=== PATIENT | female | born 1985 | race Caucasian/White ===

== ENCOUNTER 2019-03-10 21:05 | Inpatient (IN) | payer BC, OTHER ==
[2019-03-10] MEDS ORDERED: Glycerin ADULT SUPP PR PRN (22:05)
[2019-03-10] MEDS ORDERED: OXYTOCIN* 10 UNITS/ML 1 ML VIAL IM ONE (22:05)
[2019-03-10] MEDS ORDERED: Witch Hazel PAD* JAR TOPICAL PRN (22:05)
[2019-03-10] MEDS ORDERED: Acetaminophen TAB* 325 MG PO PRN (22:05)
[2019-03-10] MEDS ORDERED: Dibucaine 1% 28.35 GM TUBE PR PRN (22:05)
--- NOTE | 2019-03-10 22:13 | HP ---
General Information - Reason for Visit IUP at 40-06/22 in labor - General Information Maternal Age: 30 Grav: 1 Para: 0 SAB: 0 IEA: 0 Estimated Due Date: 11/17/15 Determined By: LMP Gestational Age in Weeks/Days: 40-7 Maternal Blood Type and Rh: A Positive - Results this Serology/RPR Result: Non-Reactive Rubella Result: Immune HBsAg Result: Negative HIV Result: Negative GBS Culture Result: Negative Past Medical History Delivery History: Hx Uncomplicated Vaginal Delivery Delivery History Comment: 11/2015 6lb 3oz female. 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 Followed by PCP Pertinent Past Surgical History: See Records Past Surgical History Comment: 2010 [facility] bx 2006 [place] tooth extraction Pertinent Family History: See Records Family History Comment: Father: Hyperlipidemia, Cancer Mother: Osteoporosis, Thyroid Dz PGM: , COPD, Lung cancer PGF: , hospital acquired ifx MGM: , appendicitis MGF: , unknown Maternal Aunt: Brain cancer - Antepartal Records Antepartal Records: Reviewed, Uncomplicated Review of Systems Constitutional: Uncomfortable - with [facility] CV Complaint: No Respiratory: Shortness of Breath: No Gastrointestinal: No Nausea/Vomiting, Normal Bowel Movement Genitourinary: Leaking Fluid - s/p SROM at 2020, No Dysuria, No Bleeding Musculoskeletal: Contractions, Pressure Neurological: No Headache, No Visual Changes Movement: Normal Exam Allergies/Adverse Reactions: Allergies No Known Allergies Allergy (Verified 04/27/16 10:23) - Measurements Height: 5 ft 2 in Weight: 153 lb Body Mass Index (BMI): 28.0 Pre- Weight: 120 lb - Exam Breast: Breast Exam Deferred CVA: No CVA Tenderness Extremities: No Edema Heart: Normal Rhythm/Heart Sounds HEENT: No Significant Findings Lungs: Clear Bilaterally Rectal: Rectal Exam Deferred Reflexes: DTR 2+ Thyroid: No Thyromegaly - Abdominal Exam Abdomen Exam: Non-Tender, Fundal Height Consistent with Dates - Ultrasound/Biophysical Profile Ultrasound Status: Not Done Targeted Exam Findings Estimated Weight: 6-6.5lbs Cervical Exam: 9cm Effacement: 100% Station: +1 Presenting Part: Vertex Membrane Status: Leaking Amniotic Fluid Evaluation: Clear Sterile Speculum Exam: None Bleeding/Discharge: None EFM Findings - External Monitor Findings Baseline Heart Rate: 130 External Monitor Findings: No Pattern of Variable or Late Decelerations, Baseline Stable External Monitor Findings Comment: By intermittent doptones FHT stable Contractions: Regular, Strong Contraction Frequency: q 2-3 min Assessment/Plan - Assessment IUP at 40-1/7 in active labor No evidence of metabolic acidemia Delivery imminent - Plan Plan: Admit - Anticipate Vaginal Delivery - Date/Time of Admission Date of Admission: 03/10/19 Time of Admission: 21:11
--- NOTE | 2019-03-10 22:23 | PROCNOTE ---
[facility] OB: Delivery Note - Delivery A Date of : 03/10/19 Time of : 21:36 [place] Sex: Female - "Fidelina" Score 1 Minute: 8 Score 5 Minutes: 9 Gestational Age in Weeks and Days at Delivery: 40 Weeks and 1 Days Delivery Method: Spontaneous Vaginal Labor: Spontaneous Did Patient attempt ?: N/A, No Previous Amniotic Fluid: Clear Estimated Blood Loss: 300 Anesthesia/Analgesia: None Delivered By: Tamiko Madera - Nursery Level of Nursery: Regular/Bedside - Perineum Perineal Injury: 1st Degree - repaired with 3-0 Rapide under local infiltration 1% lidocaine Perineal Repair: By Delivering Practioner - Events Delivery Events of Note: Pitocin Only After Delivery - Additional Delivery Notes Additional Delivery Notes: Pt admitted in active labor following spontaneous rupture to clear fluid at home at 2020. On arrival she was 9cm with spontaneous pushing efforts. Pushed x 7 min in hands and knees which led to liveborn female. Slow, controlled delivery of head. Delivered direct OA. Loose nuchal cord x 1 reduced on perineum with ease. Shoulders followed with strong maternal push. vigorous with spontaneous cry. Held aloft while mother rotated to supine position then delivered to maternal abdomen. Cord clamped x 2 and cut once pulsations ceased. Spontaneous delivery intact placenta. Membranes complete. Fundus firm to massage but moderate trickle of bleeding noted. 10units IM pitocin given. Fundus firm to massage and bleeding resolved. Repair as above. EBL 300mL. At time of note mother and in stable condition. Breast feeding initiated.
[2019-03-11] MEDS ORDERED: Lidocaine 1% MPF ** 5 ML VIAL ONE (00:12)
[2019-03-11] MEDS ORDERED: Lidocaine 1% INJ* 10 MG/ML 30 ML SDV ONE (00:13)
[2019-03-11 00:20] LABS: Urine Benzodiazepine Screen None Detected (None Detect); Urine Opiates Screen None Detected (None Detect)
[2019-03-11] MEDS: Ibuprofen TAB* 600 MG PO SCH ×3 (04:18→12:05)
[2019-03-11 08:04] LABS: ABS Eosinophils 0.1 10^3/ul (0-0.6); ABS Lymphocytes 2.6 10^3/ul (1.0-4.8); ABS Monocytes 0.8 10^3/ul (0-0.8); ABS Neutrophils 7.5 10^3/ul (1.5-7.7); Eosinophil % 1.1 %; Hematocrit 34 % (35-47); Hemoglobin 11.6 g/dL (12.0-16.0); Lymphocyte % 23.3 %; Mean Corpuscular HGB Conc 34 g/dL (31-36); Mean Corpuscular Hemoglobin 31 pg (27-31); Mean Corpuscular Volume 92 fL (80-97); Mean Platelet Volume 8.2 fL (7.4-10.4); Platelet Count 188 10^3/uL (150-450); Red Blood Count 3.73 10^6 /uL (3.70-4.87); Red Cell Distribution Width 13 % (10-15)
[2019-03-11] MEDS ORDERED: Simethicone TAB* 80 MG TAB.CHEW PO SCH (08:30)
[2019-03-11] MEDS: Docusate CAP* 100 MG PO SCH ×3 (08:47→21:19)
[2019-03-11] MEDS ORDERED: Ferrous Gluconate TAB* 324 MG TAB PO SCH (09:00)
[2019-03-11] MEDS ORDERED: Influenza VAC *QUAD* 2019-20* 0.5 ML SYRINGE IM ONE (11:00)
[2019-03-12] MEDS: Ibuprofen TAB* 600 MG PO SCH ×4 (05:25→13:41)
[2019-03-12 08:01] VITALS: BP 98/67
[2019-03-12] MEDS: Docusate CAP* 100 MG PO SCH (08:58)
== END 2019-03-12 13:50 | disposition home or self-care (01) | DRG 806 ==
LOC: MCHOBOUT 21:05 → MCHOB 21:11
PROVIDERS: ADMIT Midwife; ATTEND Midwife
PROC: 10E0XZZ Delivery of Products of Conception, External Approach (ICD-10-PCS; principal; 2019-03-10)
PROC: 0HQ9XZZ Repair Perineum Skin, External Approach (ICD-10-PCS; 2019-03-10)
DX: O48.0 Post-term pregnancy (principal); O72.1 Other immediate postpartum hemorrhage; Z37.0 Single live birth; O70.0 First degree perineal laceration during delivery; O99.344 Other mental disorders complicating childbirth; F41.9 Anxiety disorder, unspecified; O69.81X0 Labor and delivery complicated by cord around neck, without compression, not applicable or unspecified; Z3A.40 40 weeks gestation of pregnancy
CPT/HCPCS: 36415; 80307; 85025; 90686; A9270-GY; J2590